=== PATIENT | female | born 1960 | race Caucasian/White ===

== ENCOUNTER → 2024-01-08 | Outpatient (CLI) | payer BC, SELFPAY ==
[2024-01-08 10:05] LABS: Basophils # (Auto) 0.1 Thou/mm3 (0.0-0.2); Basophils % (Auto) 1 % (0-2.5); Eosinophils # (Auto) 0.5 Thou/mm3 (0.0-0.5); Eosinophils % (Auto) 11 % (0-10); Hematocrit 35.4 % (36.0-46.0); Hemoglobin 11.9 g/dL (12.0-16.0); Immature Granulocytes % (Auto) 1 % (0-0); Immature Granulocytes Auto 0.03 Thou/mm3 (0.00-0.00); Lymphocytes # (Auto) 1.2 Thou/mm3 (1.0-4.8); Lymphocytes % (Auto) 23 % (10-50); Mean Corpuscular HGB Conc 33.6 g/dl (31.0-37.0); Mean Corpuscular Hemoglobin 30.1 pg (25.0-35.0); Mean Corpuscular Volume 89 fL (80-100); Monocytes # (Auto) 0.4 Thou/mm3 (0.0-0.8); Monocytes % (Auto) 7 % (0-12); Neutrophils % (Auto) 58 % (37-80); Nucleated Red Blood Cell % 0 /100 WBC (0); Platelet Count 179 Thou/mm3 (140-440); Red Blood Count 3.96 Miln/mm3 (4.00-5.20); White Blood Count 5.2 Thou/mm3 (3.6-11.0)
[2024-01-08 10:39] LABS: Alanine Aminotransferase 17 U/L (10-49); Albumin, Serum 3.9 gm/dL (3.4-4.8); Albumin/Globulin Ratio 2.1 (1.2-2.2); Alkaline Phosphatase 71 U/L (46-116); Anion Gap 6 (7-16); Aspartate Amino Transferase 17 U/L (0-34); BUN/Creatinine Ratio 14 Ratio (12-20); Bilirubin,Total 0.3 mg/dL (0.3-1.2); Blood Urea Nitrogen 31 mg/dL (9-23); Calcium 9.5 mg/dL (8.3-10.6); Calcium (Corrected) 9.6 mg/dL (8.5-10.1); Carbon Dioxide 22.9 mMol/L (20.0-31.0); Cardiac Risk Estimate 2.1 RATIO (3.7-5.6); Chloride 111 mMol/L (98-107); Cholesterol 132 mg/dL (132-200); Creatinine (Component) 2.2 mg/dL (0.6-1.3); Free T4 (Free Thyroxine) 0.97 ng/dL (0.89-1.76); Globulin 1.9 gm/dL (2.3-3.5); Glucose 100 mg/dL (74-106); HDL Cholesterol 64 mg/dL (40-60); LDL Cholesterol,Calculated 51 mg/dL (0-130); Osmolality,Calculated 285 (275-295); Sodium 140 mMol/L (136-145); Thyroid Stimulating Hormone 2.98 uIU/mL (0.55-4.78); Total Protein 5.8 gm/dL (5.7-8.2); Triglycerides 87 mg/dL (30-150); eGFR 25 See Note
== END | disposition home or self-care (01) ==
PROVIDERS: PCP Family Medicine; Referring Provider Family Medicine; Visit Provider Family Medicine
DX: E03.2 Hypothyroidism due to medicaments and other exogenous substances (principal); Z13.1 Encounter for screening for diabetes mellitus; E78.1 Pure hyperglyceridemia; D50.0 Iron deficiency anemia secondary to blood loss (chronic)
CPT/HCPCS: 36415; 80053; 80061; 84439; 84443; 85025

== ENCOUNTER → 2024-02-13 | Outpatient (CLI) | payer BC, SELFPAY ==
[2024-02-13 10:55] LABS: Anion Gap 7 (7-16); BUN/Creatinine Ratio 13 Ratio (12-20); Blood Urea Nitrogen 29 mg/dL (9-23); Calcium 9.4 mg/dL (8.3-10.6); Calcium (Corrected) 9.4 mg/dL (8.5-10.1); Carbon Dioxide 24.5 mMol/L (20.0-31.0); Chloride 109 mMol/L (98-107); Creatinine (Component) 2.2 mg/dL (0.6-1.3); Glucose 102 mg/dL (74-106); Osmolality,Calculated 285 (275-295); Phosphorous 3.5 mg/dL (2.4-5.1); Potassium 4.8 mMol/L (3.4-5.1); Sodium 140 mMol/L (136-145); eGFR 25 See Note
== END | disposition home or self-care (01) ==
LOC: COPL 09:18
PROVIDERS: PCP Internal Medicine; Referring Provider Internal Medicine; Visit Provider Internal Medicine
DX: N17.9 Acute kidney failure, unspecified (principal)
CPT/HCPCS: 36415; 80069

== ENCOUNTER → 2024-06-26 | Outpatient (CLI) | payer BC, SELFPAY ==
[2024-06-26 11:59] LABS: Anion Gap 7 (7-16); BUN/Creatinine Ratio 13 Ratio (12-20); Blood Urea Nitrogen 28 mg/dL (9-23); Calcium 9.4 mg/dL (8.3-10.6); Calcium (Corrected) 9.4 mg/dL (8.5-10.1); Carbon Dioxide 23.3 mMol/L (20.0-31.0); Chloride 112 mMol/L (98-107); Creatinine (Component) 2.2 mg/dL (0.6-1.3); Glucose 98 mg/dL (74-106); Osmolality,Calculated 288 (275-295); Phosphorous 3.5 mg/dL (2.4-5.1); Sodium 142 mMol/L (136-145); eGFR 25 See Note
== END | disposition home or self-care (01) ==
LOC: COPL 10:13
PROVIDERS: PCP Family Medicine; Referring Provider Family Medicine; Visit Provider Family Medicine
DX: E13.10 Other specified diabetes mellitus with ketoacidosis without coma (principal)
CPT/HCPCS: 36415; 80069

== ENCOUNTER → 2024-09-09 | Outpatient (CLI) | payer BC, SELFPAY ==
[2024-09-09 09:27] LABS: Basophils # (Auto) 0.0 Thou/mm3 (0.0-0.2); Basophils % (Auto) 1 % (0-2.5); Eosinophils # (Auto) 0.7 Thou/mm3 (0.0-0.5); Eosinophils % (Auto) 14 % (0-10); Hematocrit 38.1 % (36.0-46.0); Hemoglobin 12.8 g/dL (12.0-16.0); Immature Granulocytes Auto 0.02 Thou/mm3 (0.00-0.00); Lymphocytes # (Auto) 1.2 Thou/mm3 (1.0-4.8); Lymphocytes % (Auto) 24 % (10-50); Mean Corpuscular HGB Conc 33.6 g/dl (31.0-37.0); Mean Corpuscular Hemoglobin 30.4 pg (25.0-35.0); Mean Corpuscular Volume 91 fL (80-100); Monocytes # (Auto) 0.5 Thou/mm3 (0.0-0.8); Monocytes % (Auto) 10 % (0-12); Neutrophils # (Auto) 2.6 Thou/mm3 (1.8-7.7); Neutrophils % (Auto) 51 % (37-80); Nucleated Red Blood Cell # 0.00 Thou/mm3 (0.00-0.00); Nucleated Red Blood Cell % 0 /100 WBC (0); Platelet Count 161 Thou/mm3 (140-440); RDW Standard Deviation 43.9 fL (36.4-46.3); Red Blood Count 4.21 Miln/mm3 (4.00-5.20); White Blood Count 5.1 Thou/mm3 (3.6-11.0)
[2024-09-09 09:41] LABS: Alanine Aminotransferase 14 U/L (10-49); Albumin, Serum 3.9 gm/dL (3.4-4.8); Albumin/Globulin Ratio 2.0 (1.2-2.2); Alkaline Phosphatase 87 U/L (46-116); Anion Gap 9 (7-16); Aspartate Amino Transferase 15 U/L (0-34); BUN/Creatinine Ratio 14 Ratio (12-20); Bilirubin,Total 0.3 mg/dL (0.3-1.2); Blood Urea Nitrogen 34 mg/dL (9-23); Calcium 9.1 mg/dL (8.3-10.6); Calcium (Corrected) 9.2 mg/dL (8.5-10.1); Carbon Dioxide 25.4 mMol/L (20.0-31.0); Cardiac Risk Estimate 2.4 RATIO (3.7-5.6); Chloride 110 mMol/L (98-107); Cholesterol 133 mg/dL (132-200); Creatinine (Component) 2.4 mg/dL (0.6-1.3); Globulin 2.0 gm/dL (2.3-3.5); Glucose 98 mg/dL (74-106); HDL Cholesterol 56 mg/dL (40-60); LDL Cholesterol,Calculated 52 mg/dL (0-130); Osmolality,Calculated 294 (275-295); Potassium 5.0 mMol/L (3.4-5.1); Sodium 144 mMol/L (136-145); Thyroid Stimulating Hormone 2.69 uIU/mL (0.55-4.78); Total Protein 5.9 gm/dL (5.7-8.2); Triglycerides 123 mg/dL (30-150); eGFR 22 See Note
[2024-09-09 10:00] LABS: Free T4 (Free Thyroxine) 0.85 ng/dL (0.89-1.76)
== END | disposition home or self-care (01) ==
LOC: COPL 08:22
PROVIDERS: PCP Family Medicine; Referring Provider Family Medicine; Visit Provider Family Medicine
DX: E03.2 Hypothyroidism due to medicaments and other exogenous substances (principal); D50.0 Iron deficiency anemia secondary to blood loss (chronic); Z13.1 Encounter for screening for diabetes mellitus; E78.1 Pure hyperglyceridemia
CPT/HCPCS: 36415; 80053; 80061; 84439; 84443; 85025

== ENCOUNTER → 2024-11-27 | Outpatient (CLI) | payer OTHER, SELFPAY ==
--- NOTE | 2024-11-27 08:13 | XR_ITS ---
Examination: Lumbar spine 7 views TECHNIQUE: AP, lateral, coned lateral lower lumbar spine, standing lateral extension and standing lateral extension flexion, PARKER, SANTI 7 mm November 27, 2024, 0823 hours INDICATIONS: Patient fell March 04, 2024 with into the lower back, lower back pain. FINDINGS: Severe osteopenia Lumbar dextroscoliosis 12 degrees Facet arthropathy, moderate Compression T12 vertebral body which may be subacute No acute lumbar fracture Grade 1 anterolisthesis L5 on S1 with moderate disc narrowing L4-L5, L5-S1 IMPRESSION: Consider CT scan thoracic spine follow-up to exclude subacute compression fracture T12 vertebral body
== END | disposition home or self-care (01) ==
PROVIDERS: PCP Orthopaedic Surgery; Referring Provider Orthopaedic Surgery; Visit Provider Orthopaedic Surgery
DX: M54.50 Low back pain, unspecified (principal); S39.92XS Unspecified injury of lower back, sequela; W19.XXXS Unspecified fall, sequela
CPT/HCPCS: 72114

== ENCOUNTER → 2024-11-27 | Outpatient (CLI) | payer BC, SELFPAY ==
[2024-11-27 08:58] LABS: Collection Type, Urine Clean Catch
[2024-11-27 09:30] LABS: Bilirubin,Urine Negative (Negative); Blood,Urine Trace (Negative); Clarity,Urine Clear (Clear/Hazy); Color,Urine Lt-Yellow (Lt Yel-Yel); Glucose, Urine Negative (Negative); Hyaline Casts,Urine < 1 /hpf (0-1); Ketones,Urine Negative (Negative); Leukocyte Esterase,Urine Positive (Negative); Nitrite,Urine Negative (Negative); PH,Urine 6.0 (5.0-7.0); Protein,Urine 2+ (Neg - Trace); RBC,Urine 4 /hpf (0-3); Specific Gravity,Urine 1.016 (1.001-1.035); Squamous Epithelial Cell,Urine 4 /hpf (0-5); Urobilinogen,Urine Negative mg/dL (0.0-1.0); WBC,Urine 9 /hpf (0-5)
[2024-11-27 09:44] LABS: Albumin, Serum 4.4 gm/dL (3.4-4.8); Anion Gap 11 (7-16); BUN/Creatinine Ratio 17 Ratio (12-20); Blood Urea Nitrogen 40 mg/dL (9-23); Calcium 9.8 mg/dL (8.3-10.6); Calcium (Corrected) 9.8 mg/dL (8.5-10.1); Carbon Dioxide 21.0 mMol/L (20.0-31.0); Chloride 108 mMol/L (98-107); Creatinine (Component) 2.4 mg/dL (0.6-1.3); Glucose 106 mg/dL (74-106); Osmolality,Calculated 289 (275-295); Phosphorous 4.7 mg/dL (2.4-5.1); Potassium 4.8 mMol/L (3.4-5.1); Sodium 140 mMol/L (136-145); eGFR 22 See Note
[2024-11-27 09:49] LABS: Vitamin D 25 Hydroxy Total 25.6 ng/mL (7.3-40.2)
[2024-11-27 09:57] LABS: Creatinine,Random Urine 84 mg/dL (30-125); Protein Total, Random Urine 264 mg/dL (1-14)
[2024-11-27 10:54] LABS: Parathyroid Hormone Intact 349.7 pg/ml (18.5-88.0)
== END | disposition home or self-care (01) ==
PROVIDERS: PCP Internal Medicine; Referring Provider Internal Medicine; Visit Provider Internal Medicine
DX: I12.9 Hypertensive chronic kidney disease with stage 1 through stage 4 chronic kidney disease, or unspecified chronic kidney disease (principal); N18.4 Chronic kidney disease, stage 4 (severe)
CPT/HCPCS: 36415; 80069; 81001; 82306; 82570; 83970; 84156

== ENCOUNTER → 2025-02-04 | Outpatient (CLI) | payer BC, SELFPAY ==
[2025-02-04 08:36] LABS: Basophils # (Auto) 0.1 Thou/mm3 (0.0-0.2); Basophils % (Auto) 1 % (0-2.5); Eosinophils # (Auto) 0.9 Thou/mm3 (0.0-0.5); Eosinophils % (Auto) 15 % (0-10); Hematocrit 37.0 % (36.0-46.0); Hemoglobin 12.0 g/dL (12.0-16.0); Immature Granulocytes Auto 0.03 Thou/mm3 (0.00-0.00); Lymphocytes # (Auto) 1.3 Thou/mm3 (1.0-4.8); Lymphocytes % (Auto) 22 % (10-50); Mean Corpuscular HGB Conc 32.4 g/dl (31.0-37.0); Mean Corpuscular Hemoglobin 29.6 pg (25.0-35.0); Mean Corpuscular Volume 91 fL (80-100); Monocytes # (Auto) 0.6 Thou/mm3 (0.0-0.8); Monocytes % (Auto) 11 % (0-12); Neutrophils # (Auto) 2.9 Thou/mm3 (1.8-7.7); Neutrophils % (Auto) 50 % (37-80); Nucleated Red Blood Cell # 0.00 Thou/mm3 (0.00-0.00); Nucleated Red Blood Cell % 0 /100 WBC (0); Platelet Count 199 Thou/mm3 (140-440); RDW Standard Deviation 44.2 fL (36.4-46.3); Red Blood Count 4.05 Miln/mm3 (4.00-5.20); White Blood Count 5.8 Thou/mm3 (3.6-11.0)
[2025-02-04 08:52] LABS: Parathyroid Hormone Intact 146.5 pg/ml (18.5-88.0)
[2025-02-04 08:53] LABS: Albumin, Serum 4.4 gm/dL (3.4-4.8); Anion Gap 10 (7-16); BUN/Creatinine Ratio 13 Ratio (12-20); Blood Urea Nitrogen 27 mg/dL (9-23); Calcium 9.8 mg/dL (8.3-10.6); Calcium (Corrected) 9.8 mg/dL (8.5-10.1); Carbon Dioxide 25.4 mMol/L (20.0-31.0); Chloride 107 mMol/L (98-107); Creatinine (Component) 2.1 mg/dL (0.6-1.3); Glucose 93 mg/dL (74-106); Osmolality,Calculated 288 (275-295); Phosphorous 4.1 mg/dL (2.4-5.1); Potassium 4.8 mMol/L (3.4-5.1); Sodium 142 mMol/L (136-145); eGFR 26 See Note
== END | disposition home or self-care (01) ==
PROVIDERS: PCP Internal Medicine; Referring Provider Internal Medicine; Visit Provider Internal Medicine
DX: I12.9 Hypertensive chronic kidney disease with stage 1 through stage 4 chronic kidney disease, or unspecified chronic kidney disease (principal); N18.4 Chronic kidney disease, stage 4 (severe); E78.5 Hyperlipidemia, unspecified
CPT/HCPCS: 36415; 80069; 83970; 85025

== ENCOUNTER → 2025-03-02 | Outpatient (CLI) | payer BC, SELFPAY ==
[2025-03-07 13:48] LABS: A. alternata (M6) IgE <0.10 kU/L; A. fumigatus (M3) Class 0; A. fumigatus (M3) IgE <0.10 kU/L; Alder (T2) Class 0; Alder (T2) IgE <0.10 kU/L; Bermuda Grass (G2) Class 0; Bermuda Grass (G2) IgE <0.10 kU/L; Birch (T3) Class 0; Birch (T3) IgE <0.10 kU/L; C. herbarum (M2) Class 0; C. herbarum (M2) IgE <0.10 kU/L; Cat Dander (e1) Class 0; Cat Dander (e1) IgE <0.10 kU/L; Cockroach (I6) IgE <0.10 kU/L; Common Pigweed (W14) IgE <0.10 kU/L; Common Ragweed (W1) Class 0; Common Ragweed (W1) IgE <0.10 kU/L; D. farinae (D2) Class 0; D. farinae (D2) IgE <0.10 kU/L; D. pteronyssinus (D1) Class 0; D. pteronyssinus (D1) IgE <0.10 kU/L; Dog Dander (E5) IgE <0.10 kU/L; Elm (T8) IgE <0.10 kU/L; Mountain Cedar (T6) Class 0; Mountain Cedar (T6) IgE <0.10 kU/L; Mouse Ur Prot (E72) IgE <0.10 kU/L; Mugwort (W6) Class 0; Mugwort (W6) IgE <0.10 kU/L; Oak White (T7) Class 0; Oak White (T7) IgE <0.10 kU/L; Olive Tree (T9) Class 0; Olive Tree (T9) IgE <0.10 kU/L; P. notatum (M1) Class 0; P. notatum (M1) IgE <0.10 kU/L; Russian Thistle (W11) Class 0; Russian Thistle (W11) IgE <0.10 kU/L; Sycamore (T11) IgE <0.10 kU/L; Timothy Grass (G6) IgE <0.10 kU/L; White Mulberry (T70) IgE <0.10 kU/L
[2025-03-08 07:30] LABS: IgE, Serum* 49 kU/L (114 OR LESS)
[2025-03-08 07:34] LABS: A. alternata (M6) Class 0; Cockroach (I6) Class 0; Common Pigweed (W14) Class 0; Dog Dander (E5) Class 0; Elm (T8) Class 0; IgE, Total, Serum 46 kU/L (114 OR LESS); Mouse Ur Prot (E72) Class 0; Sycamore (T11) Class 0; Timothy Grass (G6) Class 0; White Mulberry (T70) Class 0
== END | disposition home or self-care (01) ==
LOC: COPL 15:07
PROVIDERS: PCP Family Medicine; Referring Provider Nurse Practitioner Family; Visit Provider Nurse Practitioner Family
DX: R23.4 Changes in skin texture (principal); L20.89 Other atopic dermatitis; L29.89 Other pruritus
CPT/HCPCS: 36415; 82785; 86003